=== PATIENT | female | born 1935 | race Two or more races ===

== ENCOUNTER 2016-12-03 15:14 | Emergency (ER) | payer OTHER, MEDICAID ==
[~2016-12-03] VITALS: Ht 157.5 cm; Wt 68.9 kg
[2016-12-03 15:34] VITALS: BP 154/68
== END 2016-12-03 17:19 | disposition home or self-care (01) ==
LOC: ER 15:21
DX: H66.92 Otitis media, unspecified, left ear (principal); E11.9 Type 2 diabetes mellitus without complications; I10 Essential (primary) hypertension; Z88.6 Allergy status to analgesic agent

== ENCOUNTER 2016-12-14 15:44 | Emergency (ER) | payer OTHER, MEDICAID ==
[~2016-12-14] VITALS: Ht 154.9 cm; Wt 57.2 kg
[2016-12-14 15:53] VITALS: BP 166/88
== END 2016-12-14 19:41 | disposition home or self-care (01) ==
LOC: ER 15:44
DX: H83.02 Labyrinthitis, left ear (principal); E11.9 Type 2 diabetes mellitus without complications; I10 Essential (primary) hypertension; Z88.6 Allergy status to analgesic agent